=== PATIENT | female | born 1955 | race Caucasian/White ===

== ENCOUNTER → 2017-01-05 | Outpatient (CLI) | payer OTHER ==
[~2017-01-05] MED LIST: NORCO 5/325 TAB1 TAB PO
--- NOTE | ~2017-01-05 | MY29 ---
[facility] A Service of [facility] RADIOLOGY TEXT RESULTS PATIENT: JULITA VASQUEZ LOCATION: [facility] : 55 UNIT #: [id number] AGE: [address]: Lucian Saldana SEX: F ORDER DR: [id number] [facility] [address]. [place], [place] [address] [id number] O MR#: [id number] Acc #: [id number] NAME: JULITA VASQUEZ : 1955 SEX: F STUDY DATE/TIME: 01/05/2017 7:37 UNIT: [facility] ROOM: STUDY DESCRIPTION: MY RACHELL SCREENING W/ CAD BILAT Attending Physician: Naeem Basilio Referring Physician: Naeem Basilio Ordering Physician: Naeem Basilio Primary Care Physician: Naeem Basilio MEDICAL IMAGING REPORT This report is preliminary unless electronic signature is present EXAM Bilateral Digital Screening Mammogram with CAD INDICATION Breast cancer screening. 61-year-old asymptomatic female. No personal or family history of breast cancer. COMPARISON January 04, 2016; December 28, 2014; December 15, 2013; December 13, 2012; December 12, 2011; August 22, 2010; August 15, 2009. FINDINGS There are scattered fibroglandular tissues. No suspicious findings are present. IMPRESSION No mammographic evidence of malignancy. Annual screening mammography and clinical breast exam are recommended. A result letter will be sent to the patient. Patients over the age of 40 are entered into a reminder system with target due date for the next mammogram. BIRADS: 1 Negative Dictated by... Andreas Mohamud M.D. THIS IS AN ELECTRONICALLY VERIFIED REPORT Andreas Mohamud M.D. at 01/13/2017 1:23 AM [facility] A Service of [facility] RADIOLOGY TEXT RESULTS PATIENT: JULITA VASQUEZ LOCATION: [facility] : 55 UNIT #: [id number] AGE: [address]: Lucian Saldana PAC SEX: F ORDER DR: TD: 01/05/2017 18:47 JOB #: [id number] MEDICAL IMAGING REPORT Page 1 of 1 COPY
== END | disposition home or self-care (01) ==
LOC: CWCC 07:10
DX: Z12.31 Encounter for screening mammogram for malignant neoplasm of breast (principal)
CPT/HCPCS: G0202